=== PATIENT | female | born 1955 | race Caucasian/White ===

== ENCOUNTER 2020-09-16 07:24 | Outpatient (CLI) | payer OTHER ==
[2020-09-16 11:48] LABS: Hemoglobin 12.6 g/dL (12.0-16.0); Mean Corpuscular Hemoglobin 28.3 PG (27.0-33.0); Mean Corpuscular Volume 91.5 fl (80.0-100.0); Mean Platelet Volume 9.8 fl (7.4-10.4); Platelet Count 482 10x3/uL (130-400); RBC Distribution Width 14.3 % (11.5-14.5); Red Blood Cell (RBC) Count 4.45 10x6/uL (3.90-5.20); White Blood Cell (WBC) Count 7.7 10x3/uL (4.5-11.0)
[2020-09-16 11:59] LABS: Anion Gap 17 mmol/L (10-20); BUN (Urea Nitrogen) 18 mg/dL (9.8-20.1); Calc. Creatinine Clearance 0 mL/min (70-130); Calcium 9.3 mg/dL (7.8-10.44); Carbon Dioxide 26 mmol/L (23-31); Chloride 105 mmol/L (98-107); Glucose 112 mg/dL (80-115); Potassium 4.6 mmol/L (3.5-5.1); Sodium 143 mmol/L (136-145)
[2020-09-16 12:10] LABS: INR-International Normal Ratio 1.1; PTT 29.4 sec (22.0-33.0); Prothrombin Time 11.3 sec (9.5-12.1)
[2020-09-16 18:23] LABS: SARS-CoV-2 MS2 Positive; SARS-CoV-2 N Gene Negative; SARS-CoV-2 S Gene Negative; SARS-CoV-2 by NAA Not Detected (NotDetected); SARS-CoV-2 orf1ab Negative
== END 2020-09-16 07:25 | disposition home or self-care (01) ==
LOC: LABBT 07:24
PROVIDERS: ATTEND Urology
DX: Z01.818 Encounter for other preprocedural examination (principal); N20.0 Calculus of kidney; Z20.828 Contact with and (suspected) exposure to other viral communicable diseases
CPT/HCPCS: 80048; 85027; 85610; 85730; 87635; 93005; 93010; U0003

== ENCOUNTER 2020-09-21 07:01 | Day surgery (SDC) | payer OTHER ==
[2020-09-20 09:58] VITALS: BMI 35.2
[2020-09-21] MEDS ORDERED: Levofloxacin 500 mg/D5W 100 ml Premix Bag ONE (08:16)
[2020-09-21] MEDS ORDERED: Fentanyl 100 MCG/2 ML VIAL ONE ×2 (08:42→10:41)
[2020-09-21] MEDS ORDERED: Iothalamate Meglumine 60% 50 ML VIAL FS ONE (09:11)
[2020-09-21] MEDS ORDERED: Ondansetron PF 4 MG/2 ML Vial ONE (10:00)
[2020-09-21] MEDS ORDERED: PROPOFOL 200 MG/20 ML VIAL ONE (10:00)
[2020-09-21] MEDS ORDERED: Lidocaine 1% PF 5 ML VIAL ONE (10:00)
[2020-09-21] MEDS ORDERED: Dexamethasone 20 MG/5 ML VIAL ONE (10:00)
[2020-09-21] MEDS ORDERED: Oxybutynin 5 MG TAB ONE (10:29)
[2020-09-21] MEDS ORDERED: Ketorolac Tromethamine 30 MG/ML VIAL ONE (10:29)
--- NOTE | 2020-09-21 10:52 | RAD ---
Retrograde pyelogram: 09/21/2020 COMPARISON: None HISTORY: Ureteroscopy FINDINGS: A single radiograph from a retrograde pyelogram is provided, demonstrating incompletely ass essed bilateral ureteral stents. There is minimal contrast media within the right renal collecting system. Detailed assessment is limited by motion. IMPRESSION: Limited retrograde pyelogram.
--- NOTE | 2020-09-21 11:04 | OP ---
DATE OF PROCEDURE: 09/21/2020 PREOPERATIVE DIAGNOSES: Right and left renal stones. POSTOPERATIVE DIAGNOSES: Right and left renal stones. PROCEDURES PERFORMED: Bilateral ureteroscopy with laser lithotripsy, basket extraction of stone, retrograde pyelogram, intraoperative interpretation of radiologic imaging, and 4.8 x 24 double-J ureteral stents in right and left with strings. ANESTHESIA: General. COMPLICATIONS: None. ESTIMATED BLOOD LOSS: Minimal. SPECIMEN: Right and left stone fragments sent together. DESCRIPTION OF PROCEDURE: After informed consent, the patient was taken to the operating room, transferred to the table on her own power. Anesthesia was established. A time-out was performed showing correct patient, site, and procedure. Preoperative antibiotics were administered. She was prepped and draped in the lithotomy position. I began by inserting the rigid cystoscope through the urethra into the bladder. The indwelling left ureteral stent was grasped and brought out through the urethral meatus. A wire was passed through this under fluoroscopic guidance into the renal pelvis noting a stone impacted at the UPJ. An access sheath was passed over this into the proximal ureter under fluoroscopic guidance and retrograde pyelogram performed through this showing filling defect at the level of the stone and good filling of the renal pelvis without further filling defects. The flexible ureteroscope was passed through the access sheath up to the level of the stone, which was treated with a 200 micron laser fiber using a dusting technique resulting in several small pieces, which were removed with a 1.9 cm Nitinol basket. The renal pelvis and collecting system were then examined noting no further stone fragments. The pelvis was filled with contrast before removing the scope and access sheath, leaving a wire in place. A 4.8 x 24 double-J ureteral stent was passed over the wire with a curl in the kidney and curl in the bladder under fluoroscopic guidance. The cystoscope was then used to pass a wire into the right ureter and the stone treated on that side after passing an access sheath. Again, dusting technique was used and all stone fragments removed with the basket. The collecting system was then re-examined at the end, noting no further stone fragments and so the scope and access sheath were withdrawn and a 4.8 x 24 double-J ureteral stent was passed over the wire with a curl in the kidney and curl in the bladder. The bladder was then drained and the strings from both stents taped to the patient's left thigh with a Tegaderm. She was awoken from anesthesia and transferred back to her hospital bed, and taken to PACU in stable condition, where she will be discharged home upon recovery. Job ID: [id number]
== END 2020-09-21 12:40 | disposition home or self-care (01) ==
LOC: SDC 07:01
PROVIDERS: ATTEND Urology
PROC: 0TC38ZZ Extirpation of Matter from Right Kidney Pelvis, Via Natural or Artificial Opening Endoscopic (ICD-10-PCS; principal; 2020-09-21)
PROC: 0T788DZ Dilation of Bilateral Ureters with Intraluminal Device, Via Natural or Artificial Opening Endoscopic (ICD-10-PCS; principal; 2020-09-21)
PROC: 0TC48ZZ Extirpation of Matter from Left Kidney Pelvis, Via Natural or Artificial Opening Endoscopic (ICD-10-PCS; principal; 2020-09-21)
DX: N20.0 Calculus of kidney (principal); F32.9 Major depressive disorder, single episode, unspecified; N30.00 Acute cystitis without hematuria; Z79.82 Long term (current) use of aspirin; Z79.899 Other long term (current) drug therapy
CPT/HCPCS: 74420; 82365; 88300; J1100; J1885; J1956; J2405; J2704; J3010

== ENCOUNTER 2020-10-13 13:52 | Outpatient (CLI) | payer OTHER ==
--- NOTE | 2020-10-13 14:33 | ULT ---
Exam: Bilateral renal ultrasound HISTORY: Left renal calculus. COMPARISON: None FINDINGS: Right kidney: Normal cortical echotexture. No hydronephrosis. There is right renal cortical thinning. Right kidney measurements: 4.8 x 10.3 x 6.4 cm. Left kidney: Normal cortical echotexture. No hydronephrosis. There is left renal cortical thinning. M id to upper pole cyst measures 1.5 x 1.5 x 1.9 cm. Left kidney measurements 5.7 x 5.2 x 10.6 cm. Urinary bladder: Limited evaluation due to inadequate distention. No mucosal abnormality. IMPRESSION: 1. Bilateral renal cortical thinning 2. No hydronephrosis.
== END 2020-10-13 13:53 | disposition home or self-care (01) ==
LOC: BICULT 13:52
PROVIDERS: ATTEND Urology
DX: N20.1 Calculus of ureter (principal); N28.89 Other specified disorders of kidney and ureter
CPT/HCPCS: 76770

== ENCOUNTER 2021-02-15 14:23 | Outpatient (CLI) | payer MEDICARE | END 2021-02-15 14:24 | disposition home or self-care (01) | LOC: BICMAMMO 14:23 | PROVIDERS: ATTEND Physician Assistant | DX: Z12.31 Encounter for screening mammogram for malignant neoplasm of breast (principal); Z13.820 Encounter for screening for osteoporosis; M85.89 Other specified disorders of bone density and structure, multiple sites; Z78.0 Asymptomatic menopausal state | CPT/HCPCS: 77063; 77067; 77080 ==

== ENCOUNTER 2021-03-31 10:44 | Outpatient (CLI) | payer MEDICARE | END 2021-03-31 10:45 | disposition home or self-care (01) | LOC: BICRAD 10:44 | PROVIDERS: ATTEND Urology | DX: R82.991 Hypocitraturia (principal); Z87.442 Personal history of urinary calculi | CPT/HCPCS: 74018 ==

== ENCOUNTER 2021-05-17 05:50 | Inpatient (IN) | payer MEDICARE ==
[2021-05-17] MEDS ORDERED: Tranexamic Acid 1,000 MG/10 ML VIAL ONE (06:15)
[2021-05-17] MEDS ORDERED: Sodium Chloride 0.9% 100 ML ONE ×2 (06:15→06:42)
[2021-05-17] MEDS ORDERED: Vancomycin 1.5 GRAM/300 ML BAG 1.5 GM in Premix Bag 1 BAG IVPB SCH (06:15)
[2021-05-17] MEDS ORDERED: EPINEPHrine 1 MG/ML AMP ONE (06:30)
[2021-05-17] MEDS ORDERED: Bupivacaine 0.25% HCL 30 ML VIAL ONE (06:30)
[2021-05-17] MEDS ORDERED: Fentanyl 100 MCG/2 ML VIAL ONE (06:38)
[2021-05-17] MEDS ORDERED: Lidocaine 1% (PF) 30 ML VIAL ONE (06:38)
[2021-05-17] MEDS ORDERED: Midazolam HCl 2 mg/2 ml Vial ONE (06:38)
[2021-05-17] MEDS ORDERED: Ropivacaine 2% HCl/PF (20 MG/10 ML VIAL) ONE (06:59)
[2021-05-17] MEDS ORDERED: PROPOFOL 200 MG/20 ML VIAL ONE (06:59)
[2021-05-17] MEDS ORDERED: Lidocaine 1% PF 5 ML VIAL ONE (06:59)
[2021-05-17] MEDS ORDERED: Ondansetron PF 4 MG/2 ML Vial ONE (06:59)
[2021-05-17] MEDS ORDERED: Dexamethasone 20 MG/5 ML VIAL ONE (06:59)
[2021-05-17] MEDS ORDERED: Ketorolac Tromethamine 30 MG/ML VIAL ONE (06:59)
[2021-05-17] MEDS ORDERED: Bupivacaine HCl 0.5%/Epinephrine 1:200,000/PF 30 ml Vial ONE (06:59)
[2021-05-17] MEDS ORDERED: Fentanyl 100 MCG/2 ML VIAL IV PRN (07:33)
[2021-05-17] MEDS ORDERED: Ropivacaine HCl/PF 250 ML in Premix Bag 1 BAG NERVE BLCK SCH (07:45)
[2021-05-17] MEDS ORDERED: Promethazine HCl 25 MG/ML VIAL IM PRN ×2 (07:45→10:22)
[2021-05-17] MEDS ORDERED: Zolpidem Tartrate 5 MG TAB PO PRN ×2 (07:45→10:22)
[2021-05-17] MEDS ORDERED: traMADol HCl 50 MG TAB PO PRN ×3 (07:45→10:22)
[2021-05-17] MEDS ORDERED: HYDROcodone/Acetaminophen 10/325 mg Tablet PO PRN ×3 (07:45→10:22)
[2021-05-17] MEDS ORDERED: Ondansetron PF 4 MG/2 ML Vial IVP PRN ×2 (07:45→10:22)
[2021-05-17] MEDS ORDERED: Meperidine HCl/PF 25 MG/ML VIAL ONE (09:40)
[2021-05-17] MEDS ORDERED: Morphine 4 MG/ML VIAL ONE (09:48)
[2021-05-17] MEDS ORDERED: Acetaminophen 325 MG TAB PO PRN (10:22)
[2021-05-17] MEDS ORDERED: Fentanyl 100 MCG/2 ML VIAL SLOW IVP PRN ×2 (10:22)
[2021-05-17] MEDS ORDERED: diphenhydrAMINE 25 MG CAP PO PRN (10:22)
[2021-05-17] MEDS ORDERED: Ketorolac Tromethamine 30 MG/ML VIAL IVP SCH ×2 (12:00→14:00)
[2021-05-17] MEDS ORDERED: CEFAZOLIN 2 GM in Premix Bag 1 BAG IVPB SCH (14:00)
[2021-05-17] MEDS: CEFAZOLIN 2 GM in Premix Bag 1 BAG IVPB SCH ×2 (16:25→23:57)
[2021-05-17] MEDS: Ketorolac Tromethamine 30 MG/ML VIAL IVP SCH ×2 (16:26→23:56)
[2021-05-17] MEDS ORDERED: Vancomycin HCl 1.5 GM in Sodium Chloride 0.9% 250 ML 300 ML IVPB SCH (18:00)
[2021-05-17] MEDS: Aspirin 81 mg Enteric Coated Tablet PO SCH (20:06)
[2021-05-17] MEDS: HYDROcodone/Acetaminophen 10/325 mg Tablet PO PRN (22:08)
[2021-05-17] MEDS: Ferrous Gluconate 324 MG TAB PO SCH (22:57)
[2021-05-17] MEDS: Senokot S 8.6-50 MG TAB PO SCH (22:57)
[2021-05-18] MEDS: HYDROcodone/Acetaminophen 10/325 mg Tablet PO PRN ×4 (05:08→20:47)
[2021-05-18 05:32] LABS: Mean Corpuscular HGB CONC 33.5 g/dL (32.0-36.0); Mean Corpuscular Hemoglobin 31.3 pg (27.0-31.0); Mean Corpuscular Volume 93.5 fL (78.0-98.0); Mean Platelet Volume 7.1 fL (7.4-10.4); Platelet Count 240 thou/uL (130-400); RBC Distribution Width 12.6 % (11.5-14.5); Red Blood Cell (RBC) Count 3.84 mill/uL (4.20-5.40); White Blood Cell (WBC) Count 10.4 thou/uL (4.8-10.8)
[2021-05-18] MEDS: Ketorolac Tromethamine 30 MG/ML VIAL IVP SCH ×2 (09:19→15:47)
[2021-05-18] MEDS: Aspirin 81 mg Enteric Coated Tablet PO SCH ×2 (09:21→20:41)
[2021-05-18] MEDS: Multivitamin W/ Minerals 1 TAB PO SCH (09:21)
[2021-05-18] MEDS: Ferrous Gluconate 324 MG TAB PO SCH ×2 (09:21→20:41)
[2021-05-18] MEDS: Senokot S 8.6-50 MG TAB PO SCH ×2 (09:21→20:41)
[2021-05-18] MEDS ORDERED: Loratadine 10 MG TAB PO SCH (11:00)
[2021-05-18] MEDS ORDERED: Potassium Citrate 10 MEQ TAB PO SCH (11:00)
[2021-05-18] MEDS ORDERED: Atorvastatin Calcium 10 MG TAB PO SCH (21:00)
[2021-05-19] MEDS: Ketorolac Tromethamine 30 MG/ML VIAL IVP SCH ×2 (01:02→09:06)
[2021-05-19] MEDS: HYDROcodone/Acetaminophen 10/325 mg Tablet PO PRN ×4 (01:02→13:10)
[2021-05-19 05:23] LABS: Hemoglobin 13.4 g/dL (12.0-16.0); Mean Corpuscular HGB CONC 32.5 g/dL (32.0-36.0); Mean Corpuscular Hemoglobin 30.6 pg (27.0-31.0); Mean Corpuscular Volume 94.3 fL (78.0-98.0); Mean Platelet Volume 7.5 fL (7.4-10.4); Platelet Count 258 thou/uL (130-400); Red Blood Cell (RBC) Count 4.37 mill/uL (4.20-5.40); White Blood Cell (WBC) Count 8.5 thou/uL (4.8-10.8)
[2021-05-19 07:22] VITALS: TEMP 98.2
[2021-05-19] MEDS: Aspirin 81 mg Enteric Coated Tablet PO SCH (07:37)
[2021-05-19] MEDS: Senokot S 8.6-50 MG TAB PO SCH (07:37)
[2021-05-19] MEDS: Multivitamin W/ Minerals 1 TAB PO SCH (07:38)
[2021-05-19] MEDS: Ferrous Gluconate 324 MG TAB PO SCH (07:38)
[2021-05-19] MEDS ORDERED: Potassium Citrate 10 MEQ TAB PO SCH (08:00)
[2021-05-19] MEDS ORDERED: BIOTIN 5000 MCG PO SCH (09:00)
[2021-05-19] MEDS ORDERED: Ascorbic Acid 500 mg Chewable Tablet PO SCH (09:00)
[2021-05-19] MEDS ORDERED: Loratadine 10 MG TAB PO SCH (09:00)
[2021-05-19 11:15] VITALS: BP 128/67
[2021-05-19 13:05] VITALS: BMI 37.8
== END 2021-05-19 13:51 | disposition home or self-care (01) | DRG 470 ==
LOC: SDC 05:50 → SURG A 10:22 → EDSTATUS 13:15
PROVIDERS: ADMIT Orthopaedic Surgery; ATTEND Orthopaedic Surgery
PROC: 0SRC0J9 Replacement of Right Knee Joint with Synthetic Substitute, Cemented, Open Approach (ICD-10-PCS; principal; 2021-05-17)
DX: M17.11 Unilateral primary osteoarthritis, right knee (principal); M24.561 Contracture, right knee; E78.5 Hyperlipidemia, unspecified; Z79.899 Other long term (current) drug therapy
CPT/HCPCS: 36415; 85027; C1713; C1776; J0171; J0690; J1100; J1885; J2001; J2175; J2250; J2270; J2405; J2704; J2795; J3010; J3370; J3490; J7050; S0020

== ENCOUNTER 2022-02-10 10:19 | Outpatient (CLI) | payer MEDICARE | END 2022-02-10 10:20 | disposition home or self-care (01) | LOC: BICRAD 10:19 | PROVIDERS: ATTEND Urology | DX: R82.991 Hypocitraturia (principal); M16.0 Bilateral primary osteoarthritis of hip; M47.817 Spondylosis without myelopathy or radiculopathy, lumbosacral region; M61.459 Other calcification of muscle, unspecified thigh | CPT/HCPCS: 74018 ==

== ENCOUNTER 2022-03-16 10:09 | Outpatient (CLI) | payer MEDICARE ==
[2022-03-16 11:11] LABS: #Basophils 0.1 10x3/uL (0.0-0.2); #Eosinphils 0.2 10x3/uL (0.0-0.5); #Monocytes 0.8 10x3/uL (0.0-1.1); #Neutrophils 3.4 10x3/uL (1.5-8.4); %Basophils 0.7 % (0.0-2.0); %Eosinophils 2.5 % (0.0-6.0); %Lymphocytes 46.2 % (18.0-47.0); %Monocytes 9.4 % (0.0-10.0); %Neutrophils 40.7 % (40.0-75.0); Hemoglobin 15.1 g/dL (12.0-15.5); Mean Corpuscular HGB CONC 30.9 g/dL (32.0-36.0); Mean Corpuscular Hemoglobin 28.6 pg (27.0-33.0); Mean Corpuscular Volume 92.6 fl (81.6-98.3); Mean Platelet Volume 9.4 fl (7.4-10.4); Platelet Count 279 10x3/uL (150-450); RBC Distribution Width 15.1 % (11.5-14.5); Red Blood Cell (RBC) Count 5.28 10x6/uL (3.90-5.03); White Blood Cell (WBC) Count 8.4 10x3/uL (3.5-10.5)
[2022-03-16 11:29] LABS: Prothrombin Time 10.7 sec (9.5-12.1)
[2022-03-16 11:33] LABS: Anion Gap 14 mmol/L (10-20); BUN (Urea Nitrogen) 17 mg/dL (9.8-20.1); Calc. Creatinine Clearance 0 mL/min (70-130); Carbon Dioxide 30 mmol/L (23-31); Chloride 103 mmol/L (98-107); Glucose 104 mg/dL (80-115); Potassium 5.4 mmol/L (3.5-5.1); Sodium 142 mmol/L (136-145)
== END 2022-03-16 10:10 | disposition home or self-care (01) ==
LOC: LABBT 10:09
PROVIDERS: ATTEND Orthopaedic Surgery
DX: Z01.818 Encounter for other preprocedural examination (principal); M17.12 Unilateral primary osteoarthritis, left knee; Z20.822 Contact with and (suspected) exposure to COVID-19
CPT/HCPCS: 80048; 85025; 85610; 87081; 93005; U0003; U0005; 93010

== ENCOUNTER 2022-03-21 05:35 | Observation (INO) | payer MEDICARE ==
[2022-03-17 09:17] VITALS: BMI 39.5
[2022-03-21] MEDS ORDERED: Tranexamic Acid 1,000 MG/10 ML VIAL ONE ×2 (05:54→09:31)
[2022-03-21] MEDS ORDERED: Sodium Chloride 0.9% 100 ML ONE (05:54)
[2022-03-21] MEDS ORDERED: Vancomycin (BATCH) 1.5 GRAM/300 ML BAG ONE (05:54)
[2022-03-21] MEDS ORDERED: Dexmedetomidine 200 MCG/2 ML VIAL ONE (06:21)
[2022-03-21] MEDS ORDERED: fentaNYL Citrate/PF 100 MCG/2 ML SYRINGE ONE ×2 (06:21→07:56)
[2022-03-21] MEDS ORDERED: Bupivacaine 0.25% HCL 30 ML VIAL ONE (06:24)
[2022-03-21] MEDS ORDERED: EPINEPHrine 1 MG/ML AMP ONE (06:24)
[2022-03-21] MEDS ORDERED: Fentanyl 100 MCG/2 ML VIAL ONE (06:43)
[2022-03-21] MEDS ORDERED: Midazolam HCl 2 mg/2 ml Vial ONE (06:43)
[2022-03-21] MEDS ORDERED: CEFAZOLIN 2 GM VIAL ONE (07:07)
[2022-03-21] MEDS ORDERED: Fentanyl 100 MCG/2 ML VIAL IV PRN (07:18)
[2022-03-21] MEDS ORDERED: Promethazine HCl 25 MG/ML VIAL IM PRN ×3 (07:30→11:27)
[2022-03-21] MEDS ORDERED: Ropivacaine 0.2% 550 ML 550 ML NERVE BLCK SCH (07:30)
[2022-03-21] MEDS ORDERED: traMADol HCl 50 MG TAB PO PRN ×2 (07:30)
[2022-03-21] MEDS ORDERED: Ondansetron PF 4 MG/2 ML Vial IVP PRN ×2 (07:30→11:27)
[2022-03-21] MEDS ORDERED: Zolpidem Tartrate 5 MG TAB PO PRN ×2 (07:30→11:27)
[2022-03-21] MEDS ORDERED: HYDROcodone/Acetaminophen 10/325 mg Tablet PO PRN (07:30)
[2022-03-21] MEDS ORDERED: Promethazine HCl 25 MG/ML VIAL IVPB PRN (09:18)
[2022-03-21] MEDS ORDERED: Ondansetron HCl/PF 4 MG/2 ML Vial IVP PRN (09:18)
[2022-03-21] MEDS ORDERED: diphenhydrAMINE 25 MG CAP PO PRN (11:27)
[2022-03-21] MEDS ORDERED: Acetaminophen 325 MG TAB PO PRN (11:27)
[2022-03-21] MEDS: Ketorolac Tromethamine 30 MG/ML VIAL IVP SCH ×2 (12:10→18:27)
[2022-03-21] MEDS ORDERED: Aspirin 81 mg Enteric Coated Tablet PO SCH (12:45)
[2022-03-21] MEDS ORDERED: Senokot S 8.6-50 MG TAB PO SCH (12:45)
[2022-03-21] MEDS ORDERED: Ferrous Gluconate 324 MG TAB PO SCH (12:45)
[2022-03-21] MEDS ORDERED: Multivitamin W/ Minerals 1 TAB PO SCH (13:00)
[2022-03-21] MEDS: HYDROcodone/Acetaminophen 10/325 mg Tablet PO PRN ×2 (15:26→20:44)
[2022-03-21] MEDS: CEFAZOLIN 2 GM in Sodium Chloride 0.9% 100 ML IVPB SCH (15:27)
[2022-03-21] MEDS: Sodium Chloride 0.9% 1,000 ML IV SCH ×2 (15:28→22:29)
[2022-03-21] MEDS ORDERED: Vancomycin 1.5 GRAM/300 ML BAG 1.5 GM in Premix Bag 1 BAG IVPB SCH (18:00)
[2022-03-21] MEDS: Ferrous Gluconate 324 MG TAB PO SCH (20:44)
[2022-03-21] MEDS: Senokot S 8.6-50 MG TAB PO SCH (20:44)
[2022-03-21] MEDS: Aspirin 81 mg Enteric Coated Tablet PO SCH (20:44)
[2022-03-22] MEDS: Ketorolac Tromethamine 30 MG/ML VIAL IVP SCH ×3 (00:05→11:54)
[2022-03-22] MEDS: CEFAZOLIN 2 GM in Sodium Chloride 0.9% 100 ML IVPB SCH (00:05)
[2022-03-22] MEDS: Sodium Chloride 0.9% 1,000 ML IV SCH (04:42)
[2022-03-22] MEDS: HYDROcodone/Acetaminophen 10/325 mg Tablet PO PRN (05:49)
[2022-03-22 05:56] LABS: Hemoglobin 12.8 g/dL (12.0-16.0); Mean Corpuscular HGB CONC 32.2 g/dL (32.0-36.0); Mean Corpuscular Hemoglobin 30.7 pg (27.0-31.0); Mean Corpuscular Volume 95.2 fL (78.0-98.0); Platelet Count 209 thou/uL (130-400); RBC Distribution Width 13.4 % (11.5-14.5); Red Blood Cell (RBC) Count 4.17 mill/uL (4.20-5.40); White Blood Cell (WBC) Count 11.5 thou/uL (4.8-10.8)
[2022-03-22 08:14] VITALS: BP 135/67; TEMP 98.2
[2022-03-22] MEDS: Senokot S 8.6-50 MG TAB PO SCH (08:51)
[2022-03-22] MEDS: Aspirin 81 mg Enteric Coated Tablet PO SCH (08:51)
[2022-03-22] MEDS: Ferrous Gluconate 324 MG TAB PO SCH (08:51)
[2022-03-22] MEDS ORDERED: Multivitamin W/ Minerals 1 TAB PO SCH (09:00)
== END 2022-03-22 14:31 | disposition home or self-care (01) ==
LOC: SDC 05:35 → SURG B 10:41
PROVIDERS: ADMIT Orthopaedic Surgery; ATTEND Orthopaedic Surgery
PROC: 0SRD0J9 Replacement of Left Knee Joint with Synthetic Substitute, Cemented, Open Approach (ICD-10-PCS; principal; 2022-03-21)
PROC: 3E0T3BZ Introduction of Anesthetic Agent into Peripheral Nerves and Plexi, Percutaneous Approach (ICD-10-PCS; 2022-03-21)
DX: M17.12 Unilateral primary osteoarthritis, left knee (principal); Z79.82 Long term (current) use of aspirin; Z79.899 Other long term (current) drug therapy; Z96.651 Presence of right artificial knee joint
CPT/HCPCS: 27447; 64448; 73560; 85027; 97110; 97116; 97139 ×2; 97530 ×2; A4306; C1713; C1776; J3370; 36415; 96365; 96375; 96376; G0378; J0171; J0690; J1885; J2250; J2795; J3010; J3490; J7050; S0020

== ENCOUNTER 2022-08-15 11:32 | Outpatient (CLI) | payer MEDICARE | END 2022-08-15 11:33 | disposition home or self-care (01) | LOC: BICMAMMO 11:32 | PROVIDERS: ATTEND Physician Assistant | DX: Z12.31 Encounter for screening mammogram for malignant neoplasm of breast (principal); N63.11 Unspecified lump in the right breast, upper outer quadrant | CPT/HCPCS: 77063; 77067 ==

== ENCOUNTER 2022-08-31 10:05 | Outpatient (CLI) | payer MEDICARE | END 2022-08-31 10:06 | disposition home or self-care (01) | LOC: BICMAMMO 10:05 | PROVIDERS: ATTEND Physician Assistant | DX: N63.11 Unspecified lump in the right breast, upper outer quadrant (principal) | CPT/HCPCS: 76642; 77065; G0279 ==

== ENCOUNTER 2023-08-17 10:27 | Outpatient (CLI) | payer MEDICARE | END 2023-08-17 10:28 | disposition home or self-care (01) | LOC: DTY/OP 10:27 | PROVIDERS: ATTEND Surgery | DX: E66.01 Morbid (severe) obesity due to excess calories (principal) | CPT/HCPCS: 97802 ==

== ENCOUNTER 2023-09-03 07:49 | Outpatient (CLI) | payer MEDICARE | END 2023-09-03 07:50 | disposition home or self-care (01) | LOC: BICMAMMO 07:49 | PROVIDERS: ATTEND Physician Assistant | DX: Z13.820 Encounter for screening for osteoporosis (principal); Z78.0 Asymptomatic menopausal state; M85.851 Other specified disorders of bone density and structure, right thigh; M85.852 Other specified disorders of bone density and structure, left thigh | CPT/HCPCS: 77080 ==

== ENCOUNTER 2023-09-17 12:22 | Outpatient (CLI) | payer MEDICARE | END 2023-09-17 12:23 | disposition home or self-care (01) | LOC: BICMAMMO 12:22 | PROVIDERS: ATTEND Physician Assistant | DX: Z12.31 Encounter for screening mammogram for malignant neoplasm of breast (principal) | CPT/HCPCS: 77063; 77067 ==

== ENCOUNTER 2024-09-09 08:04 | Outpatient (CLI) | payer MEDICARE ==
[2024-09-09] MEDS ORDERED: Iopamidol 370 76% 100 ML VIAL ONE (11:39)
== END 2024-09-09 08:05 | disposition home or self-care (01) ==
LOC: CT 08:04
PROVIDERS: ATTEND Obstetrics & Gynecology Gynecologic Oncology
DX: C54.1 Malignant neoplasm of endometrium (principal); R91.1 Solitary pulmonary nodule
CPT/HCPCS: 36415; 71260; 74177; 82565

== ENCOUNTER 2024-09-26 16:23 | Inpatient (IN) | payer MEDICARE ==
[2024-09-26 17:04] LABS: #Basophils 0.06 10x3/uL (0.0-0.2); %Basophils 0.5 % (0.0-1.0); %Eosinophils 1.3 % (0.0-10.0); %Lymphocytes 21.1 % (21.0-51.0); %Monocytes 7.4 % (0.0-10.0); %Neutrophils 68.9 % (42.0-75.0); Hematocrit 42.6 % (36.0-47.0); Hemoglobin 13.4 g/dL (12.0-16.0); Mean Corpuscular HGB CONC 31.5 g/dL (32.0-36.0); Mean Corpuscular Hemoglobin 28.2 pg (27.0-31.0); Mean Corpuscular Volume 89.7 fL (78.0-98.0); Mean Platelet Volume 9.8 fL (7.4-10.4); Platelet Count 295 10x3/uL (130-400); RBC Distribution Width 15.5 % (11.5-14.5); Red Blood Cell (RBC) Count 4.75 mill/uL (4.20-5.40)
[2024-09-26 17:19] LABS: ALT (SGPT) 13 U/L (8-55); AST (SGOT) 15 U/L (5-34); Albumin 3.2 g/dL (3.4-4.8); Alkaline Phosphatase 103 U/L (40-110); Anion Gap 16 mmol/L (10-20); BUN (Urea Nitrogen) 13 mg/dL (9.8-20.1); Bilirubin, Total 0.3 mg/dL (0.2-1.2); Calc. Creatinine Clearance 0 mL/min (70-130); Calcium 9.2 mg/dL (7.8-10.44); Carbon Dioxide 21 mmol/L (23-31); Chloride 105 mmol/L (98-107); Estimated GFR 73; Globulin 4.3 g/dL (2.4-3.5); Glucose 153 mg/dL (80-115); Potassium 3.7 mmol/L (3.5-5.1); Protein, Total 7.5 g/dL (5.8-8.1); Sodium 138 mmol/L (136-145)
[2024-09-26] MEDS ORDERED: Sodium Chloride 0.9% 0 ML ONE (20:04)
[2024-09-26] MEDS ORDERED: Cefepime 2 GM VIAL ONE (20:04)
[2024-09-26] MEDS ORDERED: Piperacillin/Tazobactam 3.375 GM VIAL ONE (20:26)
[2024-09-26] MEDS ORDERED: Sodium Chloride 0.9% 100 ML ONE (20:26)
[2024-09-26] MEDS ORDERED: Acetaminophen 325 MG TAB PO PRN (20:42)
[2024-09-26] MEDS ORDERED: Fluticasone Propionate Nasal Spray 16 gm Bottle NASAL PRN (22:54)
[2024-09-26] MEDS ORDERED: DICLOFENAC 50 MG PO PRN (22:54)
[2024-09-27 01:23] VITALS: BMI 41.3
[2024-09-27] MEDS: Vancomycin (BATCH) 2.5 GM in Premix 1 BAG IVPB SCH (05:22)
[2024-09-27 06:33] LABS: #Basophils 0.04 10x3/uL (0.0-0.2); %Basophils 0.3 % (0.0-1.0); %Eosinophils 1.7 % (0.0-10.0); %Lymphocytes 21.5 % (21.0-51.0); %Monocytes 11.3 % (0.0-10.0); %Neutrophils 64.6 % (42.0-75.0); Hematocrit 39.6 % (36.0-47.0); Hemoglobin 12.4 g/dL (12.0-16.0); Mean Corpuscular HGB CONC 31.3 g/dL (32.0-36.0); Mean Corpuscular Hemoglobin 27.7 pg (27.0-31.0); Mean Corpuscular Volume 88.4 fL (78.0-98.0); Platelet Count 283 10x3/uL (130-400); RBC Distribution Width 15.8 % (11.5-14.5); Red Blood Cell (RBC) Count 4.48 mill/uL (4.20-5.40)
[2024-09-27 06:51] LABS: Anion Gap 14 mmol/L (10-20); BUN (Urea Nitrogen) 14 mg/dL (9.8-20.1); Calc. Creatinine Clearance 145 mL/min (70-130); Calcium 8.9 mg/dL (7.8-10.44); Carbon Dioxide 27 mmol/L (23-31); Chloride 105 mmol/L (98-107); Estimated GFR 95; Glucose 117 mg/dL (80-115); Sodium 142 mmol/L (136-145)
[2024-09-27] MEDS: Pantoprazole DR 40 MG TAB PO SCH ×2 (08:48→10:40)
[2024-09-27] MEDS: Atorvastatin Calcium 10 MG TAB PO SCH ×2 (08:49→20:54)
[2024-09-27] MEDS: Piperacillin/Tazobactam 3.375 GM in Sodium Chloride 0.9% 100 ML IVPB SCH (08:50)
[2024-09-27] MEDS ORDERED: Simvastatin 20 MG TAB PO SCH (09:00)
[2024-09-27] MEDS: Vancomycin HCl 750 MG in Sodium Chloride 0.9% 250 ML 250 ML IVPB SCH (10:36)
[2024-09-27] MEDS: Multivitamin W/ Minerals 1 TAB PO SCH (10:38)
[2024-09-27] MEDS: Cholecalciferol 1,000 UNITS (25 MCG) TAB PO SCH (10:38)
[2024-09-27] MEDS: Aspirin 81 mg Enteric Coated Tablet PO SCH (10:38)
[2024-09-27] MEDS: Loratadine 10 MG TAB PO SCH (10:40)
[2024-09-27] MEDS: Ascorbic Acid 500 mg Chewable Tablet PO SCH (10:40)
[2024-09-27] MEDS: Enoxaparin 40 MG (0.4 mL) SYRINGE SC SCH (10:40)
[2024-09-27] MEDS: Sertraline 100 MG TAB PO SCH (10:40)
[2024-09-27] MEDS: Vancomycin 1 GM in Premix 1 BAG IVPB SCH (20:52)
[2024-09-27] MEDS: Acetaminophen 325 MG TAB PO SCH (20:54)
[2024-09-28 05:29] LABS: #Basophils 0.04 10x3/uL (0.0-0.2); %Basophils 0.4 % (0.0-1.0); %Eosinophils 2.8 % (0.0-10.0); %Lymphocytes 34.4 % (21.0-51.0); %Monocytes 9.5 % (0.0-10.0); %Neutrophils 52.1 % (42.0-75.0); Hematocrit 40.1 % (36.0-47.0); Hemoglobin 12.5 g/dL (12.0-16.0); Mean Corpuscular HGB CONC 31.2 g/dL (32.0-36.0); Mean Corpuscular Hemoglobin 27.9 pg (27.0-31.0); Mean Corpuscular Volume 89.5 fL (78.0-98.0); Mean Platelet Volume 9.7 fL (7.4-10.4); Platelet Count 277 10x3/uL (130-400); RBC Distribution Width 15.8 % (11.5-14.5); Red Blood Cell (RBC) Count 4.48 mill/uL (4.20-5.40)
[2024-09-28 06:15] LABS: Anion Gap 14 mmol/L (10-20); BUN (Urea Nitrogen) 13 mg/dL (9.8-20.1); Calc. Creatinine Clearance 128 mL/min (70-130); Calcium 8.7 mg/dL (7.8-10.44); Carbon Dioxide 27 mmol/L (23-31); Chloride 105 mmol/L (98-107); Estimated GFR 85; Glucose 114 mg/dL (80-115); Potassium 4.6 mmol/L (3.5-5.1); Sodium 141 mmol/L (136-145)
[2024-09-28 06:18] LABS: Vancomycin, Random 20.6 ug/mL (See Comment)
[2024-09-28 14:01] VITALS: BMI 41.3
[2024-09-28 17:26] VITALS: BP 127/78; TEMP 98.1
== END 2024-09-28 17:26 | disposition home or self-care (01) | DRG 863 ==
LOC: ERS 16:23 → T4-B 19:43
PROVIDERS: ADMIT Student in an Organized Health Care Education/Training Program; ATTEND Student in an Organized Health Care Education/Training Program
DX: T81.41XA Infection following a procedure, superficial incisional surgical site, initial encounter (principal); Z68.41 Body mass index [BMI] 40.0-44.9, adult; E66.9 Obesity, unspecified; C54.1 Malignant neoplasm of endometrium; Z90.710 Acquired absence of both cervix and uterus; Z79.82 Long term (current) use of aspirin; Z79.899 Other long term (current) drug therapy; K21.9 Gastro-esophageal reflux disease without esophagitis; E78.5 Hyperlipidemia, unspecified; F32.A Depression, unspecified; Z98.49 Cataract extraction status, unspecified eye; Z98.51 Tubal ligation status; Z98.890 Other specified postprocedural states; Z96.653 Presence of artificial knee joint, bilateral; M19.90 Unspecified osteoarthritis, unspecified site; R91.1 Solitary pulmonary nodule
CPT/HCPCS: 36415; 76705; 80048; 80053; 80202; 83605; 85025; 87070; 87205; 96374; 97139; J0692; J1650; J2543; J3370; J7050

== ENCOUNTER 2024-10-31 11:36 | Outpatient (CLI) | payer MEDICARE | END 2024-10-31 11:37 | disposition home or self-care (01) | LOC: BICMAMMO 11:36 | PROVIDERS: ATTEND Family Medicine | DX: Z12.31 Encounter for screening mammogram for malignant neoplasm of breast (principal); Z85.42 Personal history of malignant neoplasm of other parts of uterus | CPT/HCPCS: 77063; 77067 ==